=== PATIENT | female | born 2000 | race Caucasian/White ===

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

== ENCOUNTER → 2020-02-10 | Outpatient (CLI) | payer OTHER ==
[~2020-02-10] MED LIST changes: -RT-ALBUTEROL SULF 2.5 MG/3 ML PRE-MIX VIAL INH SCH; -RT-ALBUTEROL SULF 2.5 MG/3 ML PRE-MIX VIAL ONE
--- NOTE | 2020-02-10 17:41 | Diagnostic Imaging Report ---
EXAMINATION: US Thyroid. TECHNIQUE: Multiple real-time grayscale images were obtained of the thyroid in various projections. HISTORY: Enlarged thyroid. COMPARISON: None available. FINDINGS: The right lobe of the thyroid measures 4.4 x 1.3 x 1.6 cm. The left lobe of the thyroid measures 4.3 x 1.3 x 1.4 cm. The isthmus measures 2 mm. The size and echogenicity of the thyroid is normal. There are no nodules. IMPRESSION: 1. Normal thyroid gland. TIRADS categories: TIRADS 1: Benign No FNA or follow-up required TIRADS 2: Not Suspicious No FNA or follow-up required TIRADS 3: Mildly Suspicious FNA if ? 2.5 cm Follow if ? 1.5 cm (At 1, 3 and 5 years from initial scan) TIRADS 4: Moderately Suspicious FNA if ? 1.5 cm Follow if ? 1 cm (At 1, 2, 3 and 5 years from initial scan) TIRADS 5: Highly Suspicious FNA if ? 1 cm Follow if ? 0.5 cm (Annually for 5 years from initial scan) Dictated by: Dictated on workstation # [id number]
== END ==
LOC: RAD 13:08
PROVIDERS: ATTEND Family Medicine
DX: E04.9 Nontoxic goiter, unspecified (principal)
CPT/HCPCS: 76536